=== PATIENT | male | born 1965 | race Hispanic/Latino ===

== ENCOUNTER 2017-11-18 03:22 | Emergency (ER) | payer BC ==
[2017-11-18] MEDS ORDERED: METHYLPREDNISOLONE 125 MG INJ ONE (04:11)
[2017-11-18] MEDS ORDERED: KETOROLAC 30 MG/ML INJ ONE (04:11)
--- NOTE | 2017-11-18 04:39 | ER ---
Nurse's Notes [facility] Name: Guy Stokes Age: 52 yrs Sex: Male : 1965 Arrival Date: 11/18/2017 Time: 03:31 Bed 8 Private MD: Diagnosis: Sciatica, left side Presentation: 11/18 03:35 Presenting complaint: Patient states: that he is having pain to his left butt cheek fc that runs down his left leg. Started last Saturday the . Transition of care: patient was not received from another setting of care. Onset of symptoms was November 15, 2017. Initial Sepsis Screen: Does the patient meet any 2 criteria? No. Patient's initial sepsis screen is negative. Does the patient have a suspected source of infection? No. Patient's initial sepsis screen is negative. Care prior to arrival: None. 03:35 Method Of Arrival: Ambulatory fc 03:35 Acuity: MIGUEL A 4 fc Triage Assessment: 03:45 General: Appears uncomfortable, Behavior is cooperative. Pain: Complains of pain in ak1 left lower back, left gluteus galileo, left gluteal fold and left leg. EENT: No signs and/or symptoms were reported regarding the EENT system. Neuro: No deficits noted. Cardiovascular: No deficits noted. Respiratory: No deficits noted. GI: No signs and/or symptoms were reported involving the gastrointestinal system. : No signs and/or symptoms were reported regarding the genitourinary system. Derm: No signs and/or symptoms reported regarding the dermatologic system. Musculoskeletal: Range of motion: pt with limited ROM such as bending over. pt stated he has had this pain before last year and "it went away on its own" pt stated since Saturday he has tried stretching and a message with no relief. 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 - Social history:: Smoking status: Patient uses tobacco products, denies chronic smoking, but will smoke occasionally. - Family history:: not pertinent, pertinent for. Screenin:42 Abuse screen: Denies threats or abuse. Nutritional screening: No deficits noted. Tuberculosis screening: No symptoms or risk factors identified. Fall Risk None identified. Assessment: 04:41 Reassessment: Patient appears in no apparent distress at this time. No changes from ak1 previously documented assessment. Patient is alert, oriented x 3, equal unlabored respirations, skin warm/dry/pink. see triage assessment Patient states feeling better. Patient states symptoms have improved. Vital Signs: 03:35 BP 179 / 106; Pulse 84; Resp 20; Temp 98.5(O); Pulse Ox 96% on R/A; Weight 99.79 kg (R); Height 5 ft. 7 in. (170.18 cm) (R); Pain 8/10; 04:40 BP 162 / 96; Pulse 74; Resp 16; Temp 98.6; Pulse Ox 97% on R/A; Pain 3/10; ak1 03:35 Body Mass Index 34.46 (99.79 kg, 170.18 cm) ED Course: 03:31 Patient arrived in ED. al2 03:35 Arm band placed on Patient placed in an exam room, on a stretcher. 03:41 Triage completed. 03:42 Patient has correct armband on for positive identification. Bed in low position. Call light in reach. 03:43 Johana Morales, RN is Primary Nurse. ak1 03:44 Meg Mclaughlin MD is Attending Physician. ma2 04:41 No provider procedures requiring assistance completed. Patient did not have IV access ak1 during this emergency room visit. Administered Medications: 04:17 Drug: SOLU-Medrol 125 mg Route: IM; Site: right gluteus; ak1 04:50 Follow up: Response: No adverse reaction; Pain is decreased ak1 04:17 Drug: TORadol 60 mg Route: IM; Site: right gluteus; ak1 04:50 Follow up: Response: No adverse reaction; Pain is decreased ak1 Outcome: 04:38 Discharge ordered by . ma2 04:42 Discharged to home ambulatory, with family. ak1 04:42 Condition: improved 04:42 Discharge instructions given to patient, family, Instructed on discharge instructions, follow up and referral plans. no drinking with medication, no driving heavy equipment, medication usage, Demonstrated understanding of instructions, follow-up care, medications, Prescriptions given X 2. 04:50 Patient left the ED. ak1 Signatures: Toyin Simon RN RN fc Krenek, Amber, RN RN ak1 Elda Gunter Mohammad, MD MD wi2
--- NOTE | 2017-11-18 04:39 | EDPHYS ---
Physician Documentation [facility] Name: Guy Stokes Age: 52 yrs Sex: Male : 1965 Arrival Date: 11/18/2017 Time: 03:31 Bed 8 Private MD: ED Physician Meg Mclaughlin HPI: 11/18 04:35 This 52 yrs old Male presents to ER via Ambulatory with complaints of Back ma2 Pain. 04:35 The patient presents with pain that is chronic. The symptoms are located in the left ma2 sciatic nerve. Onset: The symptoms/episode began/occurred gradually, 3 day(s) ago. The pain does not radiate. Associated signs and symptoms: Pertinent negatives: abdominal pain, dysuria, fever, hematuria, urinary retention, vomiting, weakness. Severity of symptoms: At their worst the symptoms were mild, moderate. 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 - Social history:: Smoking status: Patient uses tobacco products, denies chronic smoking, but will smoke occasionally. - Family history:: not pertinent, pertinent for. ROS: 04:35 Constitutional: Negative for fever, chills, and weight loss, Neck: Negative for injury, ma2 pain, and swelling. 04:35 MS/extremity: Positive for left sciatic nerve pain. 04:35 Neuro: Negative for altered mental status, gait disturbance, loss of consciousness, syncope. 04:35 All other systems are negative. Exam: 04:35 Constitutional: This is a well developed, well nourished patient who is awake, alert, ma2 and in no acute distress. Eyes: Pupils equal round and reactive to light, extra-ocular motions intact. Lids and lashes normal. Conjunctiva and sclera are non-icteric and not injected. Cornea within normal limits. Periorbital areas with no swelling, redness, or edema. ENT: Nares patent. No nasal discharge, no septal abnormalities noted. Tympanic membranes are normal and external auditory canals are clear. Oropharynx with no redness, swelling, or masses, exudates, or evidence of obstruction, uvula midline. Mucous membranes moist. Chest/axilla: Normal chest wall appearance and motion. Nontender with no deformity. No lesions are appreciated. Cardiovascular: Regular rate and rhythm with a normal S1 and S2. No gallops, murmurs, or rubs. Normal PMI, no JVD. No pulse deficits. Respiratory: Lungs have equal breath sounds bilaterally, clear to auscultation and percussion. No rales, rhonchi or wheezes noted. No increased work of breathing, no retractions or nasal flaring. Abdomen/GI: Soft, non-tender, with normal bowel sounds. No distension or tympany. No guarding or rebound. No evidence of tenderness throughout. Back: No spinal tenderness. No costovertebral tenderness. Full range of motion. Skin: Warm, dry with normal turgor. Normal color with no rashes, no lesions, and no evidence of cellulitis. MS/ Extremity: Pulses equal, no cyanosis. Neurovascular intact. Full, normal range of motion. Neuro: Awake and alert, GCS 15, oriented to person, place, time, and situation. Cranial nerves II-XII grossly intact. Motor strength 5/5 in all extremities. Sensory grossly intact. Cerebellar exam normal. Normal gait. Vital Signs: 03:35 BP 179 / 106; Pulse 84; Resp 20; Temp 98.5(O); Pulse Ox 96% on R/A; Weight 99.79 kg fc (R); Height 5 ft. 7 in. (170.18 cm) (R); Pain 8/10; 04:40 BP 162 / 96; Pulse 74; Resp 16; Temp 98.6; Pulse Ox 97% on R/A; Pain 3/10; ak1 03:35 Body Mass Index 34.46 (99.79 kg, 170.18 cm) [facility]: 03:44 Patient medically screened. [facility] 04:35 Differential diagnosis: Scoliosis sprain, sicatica. ok2 04:35 Data reviewed: vital signs, nurses notes. Counseling: I had a detailed discussion with [facility] the patient and/or guardian regarding: the historical points, exam findings, and any diagnostic results supporting the discharge/admit diagnosis, the presence of at least one elevated blood pressure reading (>120/80) during this emergency department visit, the need for outpatient follow up. Response to treatment: the patient's symptoms have resolved after treatment. Administered Medications: 04:17 Drug: SOLU-Medrol 125 mg Route: IM; Site: right gluteus; ak1 04:50 Follow up: Response: No adverse reaction; Pain is decreased ak1 04:17 Drug: TORadol 60 mg Route: IM; Site: right gluteus; ak1 04:50 Follow up: Response: No adverse reaction; Pain is decreased ak1 Disposition: 11/18/17 04:38 Discharged to Home. Impression: Sciatica, left side. - Condition is Stable. - Discharge Instructions: Sciatica, Spinal Injection, Care After, [id number]. - Prescriptions for Cyclobenzaprine 10 mg Oral Tablet - take 1 tablet by ORAL route every 8 hours As needed; 30 tablet. Tramadol 50 mg Oral Tablet - take 1 tablet by ORAL route every 8 hours as needed; 12 tablet. - Work release form, Medication Reconciliation Form, Thank You Letter, Antibiotic Education, Prescription Opioid Use form. - Follow up: Private Physician; When: Tomorrow; Reason: Continuance of care. - Problem is new. - Symptoms are unchanged. Signatures: Toyin Simon RN RN Johana Ayers RN RN ak1 Meg Mclaughlin MD MD ma2 Corrections: (The following items were deleted from the chart) 04:50 04:38 11/18/2017 04:38 Discharged to Home. Impression: Sciatica, left side. Condition ak1 is Stable. Prescriptions for Cyclobenzaprine 10 mg Oral Tablet - take 1 tablet by ORAL route every 8 hours As needed; 30 tablet, Tramadol 50 mg Oral Tablet - take 1 tablet by ORAL route every 8 hours as needed; 12 tablet. and Forms are Medication Reconciliation Form, Thank You Letter, Antibiotic Education, Prescription Opioid Use. Follow up: Private Physician; When: Tomorrow; Reason: Continuance of care. Problem is new. Symptoms are unchanged. ma2
== END 2017-11-18 04:50 | disposition home or self-care (01) ==
LOC: ER 03:22
DX: M54.32 Sciatica, left side (principal); I10 Essential (primary) hypertension; E11.9 Type 2 diabetes mellitus without complications; Z72.0 Tobacco use
CPT/HCPCS: 96372; 99283; J2930

== ENCOUNTER 2019-01-04 03:47 | Emergency (ER) | payer BC, OTHER ==
--- OUTSIDE RECORDS SUMMARY | 2019-01-04 03:49 | XMS REPORT ---
:1965 [facility] Address [address] [place] [address] Dr. Wild [address] [place] [id number] Care Team Providers Name Role Phone Unavailable Unavailable Unavailable Problems This patient has no known problems. Allergies, Adverse Reactions, Alerts This patient has no known allergies or adverse reactions. Medications This patient has no known medications.
[2019-01-04] MEDS ORDERED: MECLIZINE HCL 12.5 MG TAB ONE (04:51)
[2019-01-04] MEDS ORDERED: NA CHLORIDE 0.9% 1,000 ML ONE (04:51)
[2019-01-04 05:17] LABS: Absolute Lymphocytes (CBC) 1.5 K/uL (0.7-4.9); Eosinophils % 5.5 % (0-4.4); Hematocrit 33.4 % (39.6-49.0); Lymphocytes % 25.7 % (15.3-44.8); MPV 9.8 fL (7.6-11.3); Monocytes % 7.1 % (3.3-12.3); RBC Red Blood Cell Count 3.72 M/uL (4.33-5.43)
[2019-01-04 05:32] LABS: ALT/SGPT 43 U/L (12-78); AST/SGOT 28 U/L (15-37); Albumin 3.7 g/dL (3.4-5.0); Alkaline Phosphatase 100 U/L (45-117); BUN Blood Urea Nitrogen 14 mg/dL (7-18); Bicarbonate 25 mmol/L (21-32); Bilirubin Direct 0.1 mg/dL (0-0.2); Bilirubin Total 0.5 mg/dL (0.2-1.0); Glucose Level 134 mg/dL (74-106); Magnesium 2.1 mg/dL (1.8-2.4); NT PRO-BNP 51 pg/mL (<125); Protein, Total 7.5 g/dL (6.4-8.2); Sodium Level 139 mmol/L (136-145); Troponin (Emerg Dept Use Only) < 0.02 ng/mL (0.0-0.045)
--- NOTE | 2019-01-04 08:12 | EDPHYS ---
Physician Documentation [facility] Name: Guy Stokes Age: 53 yrs Sex: Male : 1965 Arrival Date: 01/04/2019 Time: 03:51 Bed 7 Private MD: ED Physician Noah Lopez HPI: 01/04 04:28 This 53 yrs old Male presents to ER via Wheelchair with complaints of General pkl Weakness, spit up blood. 04:28 The patient has experienced near-syncope. Onset: The symptoms/episode began/occurred pkl just prior to arrival. Associated signs and symptoms: Pertinent positives: dizziness. S/P partial left nephrectomy 1 month at [facility]. Historical: - Allergies: 04:14 No Known Allergies; aa1 - Home Meds: 04:14 amlodipine 5 mg tab 1 tab once daily [Active]; ferrous sulfate 325 mg (65 mg iron) Oral aa1 tab [Active]; Metformin Oral [Active]; Calcium Carbonate Oral [Active]; - PMHx: 04:14 Hightower's Palsy; Diabetes - NIDDM; High Cholesterol; Hypertension; renal carcinoma; aa1 - PSHx: 04:14 Partial L Nephrectomy; aa1 - Immunization history:: Flu vaccine is not up to date. - Social history:: Smoking status: Patient/guardian denies using tobacco. - Ebola Screening: : No symptoms or risks identified at this time. ROS: 04:28 Eyes: Negative for injury, pain, redness, and discharge, ENT: Negative for injury, pkl pain, and discharge, Neck: Negative for injury, pain, and swelling, Cardiovascular: Negative for chest pain, palpitations, and edema, Respiratory: Negative for shortness of breath, cough, wheezing, and pleuritic chest pain, Abdomen/GI: Negative for abdominal pain, nausea, vomiting, diarrhea, and constipation, Back: Negative for injury and pain, : Negative for injury, bleeding, discharge, and swelling, MS/Extremity: Negative for injury and deformity, Skin: Negative for injury, rash, and discoloration. 04:28 Neuro: Positive for dizziness, near syncope. Exam: 04:28 Abdomen/GI: Inspection: abdomen appears normal, Bowel sounds: normal, Palpation: pkl abdomen is soft and non-tender, in all quadrants. 04:28 Head/Face: Normocephalic, atraumatic. Eyes: Pupils equal round and reactive to light, extra-ocular motions intact. Lids and lashes normal. Conjunctiva and sclera are non-icteric and not injected. Cornea within normal limits. Periorbital areas with no swelling, redness, or edema. ENT: Nares patent. No nasal discharge, no septal abnormalities noted. Tympanic membranes are normal and external auditory canals are clear. Oropharynx with no redness, swelling, or masses, exudates, or evidence of obstruction, uvula midline. Mucous membranes moist. Neck: Trachea midline, no thyromegaly or masses palpated, and no cervical lymphadenopathy. Supple, full range of motion without nuchal rigidity, or vertebral point tenderness. No Meningismus. Chest/axilla: Normal chest wall appearance and motion. Nontender with no deformity. No lesions are appreciated. Cardiovascular: Regular rate and rhythm with a normal S1 and S2. No gallops, murmurs, or rubs. Normal PMI, no JVD. No pulse deficits. Respiratory: Lungs have equal breath sounds bilaterally, clear to auscultation and percussion. No rales, rhonchi or wheezes noted. No increased work of breathing, no retractions or nasal flaring. Abdomen/GI: Soft, non-tender, with normal bowel sounds. No distension or tympany. No guarding or rebound. No evidence of tenderness throughout. Back: No spinal tenderness. No costovertebral tenderness. Full range of motion. Skin: Warm, dry with normal turgor. Normal color with no rashes, no lesions, and no evidence of cellulitis. MS/ Extremity: Pulses equal, no cyanosis. Neurovascular intact. Full, normal range of motion. Neuro: Awake and alert, GCS 15, oriented to person, place, time, and situation. Cranial nerves II-XII grossly intact. Motor strength 5/5 in all extremities. Sensory grossly intact. Cerebellar exam normal. Normal gait. Vital Signs: 04:06 BP 150 / 95; Pulse 98; Resp 18; Temp 97.6; Pulse Ox 97% on R/A; Weight 97.52 kg; Height aa1 5 ft. 7 in. (170.18 cm); Pain 0/10; 06:18 BP 151 / 90; Pulse 82; Resp 17; Pulse Ox 97% on R/A; tl1 06:38 BP 135 / 88; Pulse 81; Resp 17; Pulse Ox 98% ; Pain 0/10; tl1 07:20 BP 135 / 84; Pulse 83; Resp 16 S; Temp 99.0(TE); Pulse Ox 95% on R/A; Pain 0/10; aa5 08:40 BP 133 / 87; Pulse 84; Resp 16 S; Pulse Ox 97% on R/A; Pain 0/10; aa5 04:06 Body Mass Index 33.67 (97.52 kg, 170.18 cm) aa1 MDM: 04:14 Patient medically screened. pkl 08:10 Data reviewed: vital signs, nurses notes, lab test result(s), EKG, radiologic studies, abhi CT scan, plain films. 01/04 04:26 Order name: Basic Metabolic Panel pkl 01/04 04:26 Order name: CBC with Diff; Complete Time: 06:19 pkl 01/04 04:26 Order name: LFT's; Complete Time: 06:19 pkl 01/04 04:26 Order name: Magnesium; Complete Time: 06:19 pkl 01/04 04:26 Order name: NT PRO-BNP; Complete Time: 06:19 pkl 01/04 04:26 Order name: PT-INR; Complete Time: 06:19 pkl 01/04 04:26 Order name: Troponin (emerg Dept Use Only); Complete Time: 06:19 pkl 01/04 04:26 Order name: XRAY Chest (1 view) pkl 01/04 04:26 Order name: EKG; Complete Time: 04:28 pkl 01/04 04:26 Order name: CT Head Brain wo Cont pkl 01/04 04:26 Order name: CT Abd/Pelvis - IV Contrast Only pkl 01/04 04:28 Order name: Basic Metabolic Panel; Complete Time: 06:19 EDMS 01/04 04:26 Order name: Cardiac monitoring; Complete Time: 04:56 pkl 01/04 04:26 Order name: EKG - Nurse/Tech; Complete Time: 05:00 pkl 01/04 04:26 Order name: IV Saline Lock; Complete Time: 04:56 pkl 01/04 04:26 Order name: Labs collected and sent; Complete Time: 04:56 pkl 01/04 04:26 Order name: O2 Per Protocol; Complete Time: 04:56 pkl 01/04 04:26 Order name: O2 Sat Monitoring; Complete Time: 04:56 pkl Administered Medications: 04:43 Drug: Antivert 50 mg Route: PO; tl1 04:44 Drug: NS 0.9% 1000 ml Route: IV; Rate: 125 ml/hr; Site: right antecubital; tl1 Disposition: 01/04/19 08:11 Discharged to Home. Impression: Weakness, Abdominal tenderness. - Condition is Stable. - Discharge Instructions: Abdominal Pain, Adult, Weakness, Abdominal Pain, Adult, [id number], Type 2 Diabetes Mellitus, Self Care, Adult, Type 2 Diabetes Mellitus, Self Care, Adult, Jggu-[id number], Benign Positional Vertigo, Vertigo, [id number]. - Medication Reconciliation Form, Thank You Letter, Antibiotic Education, Prescription Opioid Use form. - Follow up: Private Physician; When: 2 - 3 days; Reason: Recheck today's complaints, Continuance of care, Re-evaluation by your physician. - Problem is new. - Symptoms have improved. Signatures: Dispatcher [employer] EDMS Gertrude Santo RN RN aa1 Noah Lopez MD MD cha Lam, Pin, MD MD pkl Calderon, Audri, RN RN aa5 Marisol Paiz RN RN tl1 Corrections: (The following items were deleted from the chart) 08:50 08:11 01/04/2019 08:11 Discharged to Home. Impression: Weakness; Abdominal tenderness. aa5 Condition is Stable. Forms are Medication Reconciliation Form, Thank You Letter, Antibiotic Education, Prescription Opioid Use. Follow up: Private Physician; When: 2 - 3 days; Reason: Recheck today's complaints, Continuance of care, Re-evaluation by your physician. Problem is new. Symptoms have improved. abhi
--- NOTE | 2019-01-04 08:12 | ER ---
Nurse's Notes [facility] Name: Guy Stokes Age: 53 yrs Sex: Male : 1965 Arrival Date: 01/04/2019 Time: 03:51 Bed 7 Private MD: Diagnosis: Weakness;Abdominal tenderness Presentation: 01/04 04:06 Presenting complaint: Patient states: he woke up to go to the bathroom about 0245 this aa1 am and was very dizzy and when he went to get back into bed his arms gave out on him while he was trying to hold his weight up. States he also had a partial L nephrectomy 1 month ago and ever since then when he bends over and then stands back up he has a bubble in his L lateral abdomen which was not there prior to his procedure. Transition of care: patient was not received from another setting of care. Onset of symptoms was January 04, 2019 at 02:45. Risk Assessment: Do you want to hurt yourself or someone else? Patient reports no desire to harm self or others. Initial Sepsis Screen: Does the patient meet any 2 criteria? No. Patient's initial sepsis screen is negative. Does the patient have a suspected source of infection? No. Patient's initial sepsis screen is negative. Care prior to arrival: None. 04:06 Method Of Arrival: Wheelchair aa1 04:06 Acuity: MIGUEL A 3 aa1 Triage Assessment: 04:06 General: Appears in no apparent distress. comfortable, Behavior is calm, cooperative, aa1 appropriate for age. Pain: Denies pain. Historical: - Allergies: 04:14 No Known Allergies; aa1 - Home Meds: 04:14 amlodipine 5 mg tab 1 tab once daily [Active]; ferrous sulfate 325 mg (65 mg iron) Oral aa1 tab [Active]; Metformin Oral [Active]; Calcium Carbonate Oral [Active]; - PMHx: 04:14 Hightower's Palsy; Diabetes - NIDDM; High Cholesterol; Hypertension; renal carcinoma; aa1 - PSHx: 04:14 Partial L Nephrectomy; aa1 - Immunization history:: Flu vaccine is not up to date. - Social history:: Smoking status: Patient/guardian denies using tobacco. - Ebola Screening: : No symptoms or risks identified at this time. Screenin:44 Abuse screen: Denies threats or abuse. Nutritional screening: No deficits noted. tl2 Tuberculosis screening: No symptoms or risk factors identified. Fall Risk IV access (20 points). Assessment: 06:20 General: Appears in no apparent distress. Behavior is calm, cooperative, appropriate tl1 for age. Neuro: Level of Consciousness is awake, alert, obeys commands, Oriented to person, place, time, situation, Associate Store Leader are equal bilaterally Moves all extremities. Speech is normal. Cardiovascular: Reports lightheadedness, Denies chest pain, Capillary refill < 3 seconds Patient's skin is warm and dry. Respiratory: Airway is patent Trachea midline Respiratory effort is even, unlabored, Breath sounds are clear bilaterally. GI: Abdomen is non-distended, Bowel sounds present X 4 quads. Abd is soft and non tender X 4 quads. : No signs and/or symptoms were reported regarding the genitourinary system. EENT: No signs and/or symptoms were reported regarding the EENT system. Derm: No signs and/or symptoms reported regarding the dermatologic system. 07:20 Reassessment: Patient is alert, oriented x 3, equal unlabored respirations, skin aa5 warm/dry/pink. Patient denies pain at this time. Pt reports dizziness has improved. Awaiting radiology results, pt and pt's notified of wait time. . 08:45 Reassessment: Patient is alert, oriented x 3, equal unlabored respirations, skin aa5 warm/dry/pink. Patient denies pain at this time. Vital Signs: 04:06 BP 150 / 95; Pulse 98; Resp 18; Temp 97.6; Pulse Ox 97% on R/A; Weight 97.52 kg; Height aa1 5 ft. 7 in. (170.18 cm); Pain 0/10; 06:18 BP 151 / 90; Pulse 82; Resp 17; Pulse Ox 97% on R/A; tl1 06:38 BP 135 / 88; Pulse 81; Resp 17; Pulse Ox 98% ; Pain 0/10; tl1 07:20 BP 135 / 84; Pulse 83; Resp 16 S; Temp 99.0(TE); Pulse Ox 95% on R/A; Pain 0/10; aa5 08:40 BP 133 / 87; Pulse 84; Resp 16 S; Pulse Ox 97% on R/A; Pain 0/10; aa5 04:06 Body Mass Index 33.67 (97.52 kg, 170.18 cm) aa1 ED Course: 03:51 Patient arrived in ED. am2 04:06 Arm band placed on right wrist. aa1 04:10 Triage completed. aa1 04:14 Stephen Yap MD is Attending Physician. pkl 04:43 Inserted saline lock: 20 gauge in right antecubital area, using aseptic technique. tl2 Blood collected. 04:44 Patient has correct armband on for positive identification. Placed in gown. Bed in low tl2 position. Call light in reach. Side rails up X 1. 04:47 XRAY Chest (1 view) In Process Unspecified. EDMS 06:37 Marisol Paiz, RN is Primary Nurse. tl1 06:49 CT Head Brain wo Cont In Process Unspecified. EDMS 06:49 CT Abd/Pelvis - IV Contrast Only In Process Unspecified. EDMS 07:42 Attending Physician role handed off by Stephen Yap MD abhi 07:42 Noah Lopez MD is Attending Physician. abhi 08:45 No provider procedures requiring assistance completed. IV discontinued, intact, aa5 bleeding controlled, No redness/swelling at site. Pressure dressing applied. Administered Medications: 04:43 Drug: Antivert 50 mg Route: PO; tl1 04:44 Drug: NS 0.9% 1000 ml Route: IV; Rate: 125 ml/hr; Site: right antecubital; tl1 Output: 06:43 Urine: 500ml (Voided); Total: 500ml. tl1 Outcome: 08:11 Discharge ordered by . abhi 08:45 Discharged to home ambulatory, with significant other. aa5 08:45 Condition: stable 08:45 Discharge instructions given to patient, Instructed on discharge instructions, follow up and referral plans. Demonstrated understanding of instructions, follow-up care. 08:50 Patient left the ED. aa5 Signatures: Dispatcher [employer] EDMS Gertrude Santo RN RN aa1 Noah Lopez MD MD cha Lam, Pin, MD MD pkl Calderon, Audri, RN RN aa5 Marisol Paiz RN RN tl1 Beatriz Aquino RN RN tl2 Malka Olivera am2
--- NOTE | 2019-01-04 08:37 | RAD REPORT ---
EXAM DESCRIPTION: RAD - Chest Single View - 01/04/2019 4:50 am CLINICAL HISTORY: Syncope, shortness of breath COMPARISON: January 2008 TECHNIQUE: AP portable chest image was obtained 0445 hours . FINDINGS: Lungs are clear. Heart and vasculature are normal. No measurable pleural effusion and no p neumothorax. No acute bony abnormality seen. No acute aortic findings suspected. IMPRESSION: No acute cardiopulmonary process.
--- NOTE | 2019-01-05 07:55 | EKG ---
Test Date: 2019-01-04 Test Time: 05:00:47 Professional Fee Coder: VICK MEASUREMENT RESULTS: Intervals: Rate: 83 DC: 190 QRSD: 86 QT: 368 QTc: 432 [place]: P: 40 DC: 190 QRS: 5 T: 35 INTERPRETIVE STATEMENTS: Normal sinus rhythm Normal ECG Compared to ECG 02/13/2008 14:19:00 No significant changes Electronically Signed On 01-05-19 07:53:53 CDT by Jose Allen
--- NOTE | 2019-01-05 12:20 | RAD REPORT ---
EXAM DESCRIPTION: CT - Abdomen Pelvis W Contrast - 01/04/2019 7:40 am CLINICAL HISTORY: The patient is 53 years old and is Male; ABD PAIN TECHNIQUE: Axial computed tomography images of the abdomen and pelvis with intravenous contrast. S agittal and coronal reformatted images were created and reviewed. This CT exam was performed using one or more of the following dose reduction techniques: automated exposure control, adjustment of t he mA and/or kV according to patient size, and/or use of iterative reconstruction technique. COMPARISON: No relevant prior studies available. FINDINGS: LUNG BASES: There is mild subsegmental atelectasis and/or scarring in bilateral lung bas es. ABDOMEN: LIVER: There is a diffuse decrease in hepatic parenchymal density, consistent with fatty infiltr ation. GALLBLADDER AND BILE DUCTS: No calcified stones. No ductal dilation. PANCREAS: No ductal dilation. No mass. SPLEEN: Unremarkable. ADRENALS: Unremarkable. No mass. KIDNEYS AND URETERS: Vascular coils are present throughout the left renal parenchyma. Streak art ifact is noted. Mild left perinephric fluid is present. Areas of wedge-shaped low attenuation through out the left renal parenchyma are present. The right kidney is normal. No hydronephrosis. STOMACH AND BOWEL: The stomach is distended with food contents the small bowel is normal in kh[place] dor[place]. A moderate amount stool is present throughout the colon. There is no mucosal thickening or evide nce of bowel obstruction. PELVIS: APPENDIX: The appendix is normal in caliber without surrounding inflammation. BLADDER: Unremarkable. No mass. REPRODUCTIVE: Unremarkable as visualized. ABDOMEN and PELVIS: INTRAPERITONEAL SPACE: Unremarkable. No free air. No significant fluid collection. BONES/JOINTS: There is no acute fracture of the visualized axial and appendicular skeleton. SOFT TISSUES: Subcutaneous air is present within the soft tissues of the left flank with mild in flammatory fat stranding. VASCULATURE: Unremarkable. No abdominal aortic aneurysm. LYMPH NODES: Unremarkable. No enlarged lymph nodes. IMPRESSION: 1. Minimal subcutaneous air within the soft tissues of the left flank with minimal fat stranding. Findings may be postprocedural given the appearance of the left kidney. Alternatively, mi nimal contusion is within the differential; however, felt to be less likely. 2. Postoperative change of the left kidney with extensive coiling is noted. Left perinephric fluid and stranding is present with areas of devascularization of the left kidney. 3. No evidence of solid organ injury or traumatic bony findings on this contrasted CT of the abdome n and pelvis. Electronically signed by: Sussy Salinas MD 01/04/2019 7:00 AM CDT Due to temporary technical issues with the PACS/Fluency reporting system, reports are being signed by the in house radiologist as a courtesy to ensure prompt reporting. The interpreting radiologist is f ully responsible for the content of the report.
--- NOTE | 2019-01-05 12:21 | RAD REPORT ---
EXAM DESCRIPTION: CT - Head Brain Wo Cont - 01/04/2019 6:48 am CLINICAL HISTORY: The patient is 53 years old and is Male; DIZZINESS TECHNIQUE: Axial computed tomography images of the head/brain without intravenous contrast. Sagitt al and coronal reformatted images were created and reviewed. This CT exam was performed using one o r more of the following dose reduction techniques: automated exposure control, adjustment of the mA and/or kV according to patient size, and/or use of iterative reconstruction technique. COMPARISON: No relevant prior studies available. FINDINGS: BRAIN: Unremarkable. The cruz-white matter differentiation is preserved . No hemorrhag e. No significant white matter disease. No edema. No extra-axial fluid collections. VENTRICLES: Unremarkable. No ventriculomegaly. BONES/JOINTS: No acute fracture. SOFT TISSUES: Unremarkable. SINUSES: Unremarkable as visualized. No acute sinusitis. MASTOID AIR CELLS: Unremarkable as visualized. No mastoid effusion. IMPRESSION: No acute intracranial findings. Electronically signed by: Sussy Salinas MD 01/04/2019 6:55 AM CDT Due to temporary technical issues with the PACS/Fluency reporting system, reports are being signed by the in house radiologist as a courtesy to ensure prompt reporting. The interpreting radiologist is f ully responsible for the content of the report.
== END 2019-01-04 08:50 | disposition home or self-care (01) ==
LOC: ER 03:47
DX: R53.1 Weakness (principal); R10.819 Abdominal tenderness, unspecified site; I10 Essential (primary) hypertension; E78.00 Pure hypercholesterolemia, unspecified; E11.9 Type 2 diabetes mellitus without complications; G51.0 Bell's palsy; Z85.53 Personal history of malignant neoplasm of renal pelvis
CPT/HCPCS: 36415; 70450; 71045; 74177; 80048; 80076; 83735; 83880; 84484; 85025; 85610; 93005; 99284; J7030; Q9967